=== PATIENT | female | born 1970 | race Caucasian/White ===

== ENCOUNTER 2017-10-09 04:02 | Emergency (ER) | payer BC ==
[2017-10-09 04:48] VITALS: BMI 27.9
[2017-10-09] MEDS ORDERED: FAMOTIDINE IV 20 MG/12 ML VIAL IVPUSH ONE (05:51)
[2017-10-09] MEDS ORDERED: SODIUM CHLORIDE 0.9% 1000 ML INFUS.BAG IV ONE (05:51)
[2017-10-09] MEDS ORDERED: FAMOTIDINE 20 MG/50 ML IVPB 20 MG/50 ML MG IVPB ONE (06:14)
--- NOTE | 2017-10-09 06:17 | PDOC ---
History of Present Illness - General Chief Complaint: Nausea Stated Complaint: INDIGESTION Time Seen by Provider: 10/09/17 05:16 - History of Present Illness Initial Comments: 10/09/17 06:27 CHIEF COMPLAINT: heartburn HISTORY OF PRESENT ILLNESS: 47-year-old female with no past medical history presents to ED with "heartburn". Patient reports she woke up and will night feeling a burning to her stomach and mid sternal region. Patient also states she feels anxious because she had a history of shoulder injury, but "I did not get surgery yet", she also feels some tingling to her fingers b/l. Patient reports last BM was today and she felt constipated. PAST MEDICAL HISTORY: Denies past medical history FAMILY HISTORY: Denies SOCIAL HISTORY: Denies tobacco, alcohol, illicit drug use. SURGICAL HISTORY: Denies ALLERGIES: No known drug allergies REVIEW OF SYSTEMS as per HPI PHYSICAL EXAM General Appearance: Well-appearing, appropriately dressed. No apparent distress , no intoxication. HEENT: EOMI, PERRLA, normal ENT inspection, normal voice, TMs normal, pharynx normal. No conjunctival pallor. No photophobia, scleral icterus. Neck: Supple. Trachea midline. No tenderness, rigidity, carotid bruit, stridor , lymphadenopathy, or thyromegaly. Respiratory/Chest: Lungs CTAB. No shortness of breath, chest tenderness, respiratory distress, accessory muscle use. No crackles, rales, rhonchi, stridor , wheezing, dullness Cardiovascular: RRR. S1, S2. No JVD, murmur, bradycardia, tachycardia. Vascular Pulses: Dorsalis-Pedis (R): 2+, Dorsalis-Pedis (L): 2+ Gastrointestinal/Abdominal: Normal bowel sounds. Abdomen soft, non-distended. No tenderness or rebound tenderness. No organomegaly, pulsatile mass, guarding , hernia, hepatomegaly, splenomegaly. Lymphatic: No adenopathy, tenderness. Musculoskeletal/Extremities: Normal inspection. FROM of all extremities, normal capillary refill. Pelvis Stable. No CVA tenderness. No tenderness to extremities, pedal edema, swelling, erythema or deformity. Integumentary: Appropriate color, dry, warm. No cyanosis, erythema, jaundice or rash Neurologic: teacher music II-XII intact. Fully oriented, alert. Appropriate mood/affect. Motor strength 5/5. No appreciable EOM palsy, facial droop or sensory deficit. Past History - Past Medical History Allergies/Adverse Reactions: Allergies Allergy/AdvReac Type Severity Reaction Status Date / Time No Known Allergies Allergy Verified 10/09/17 04:48 Home Medications: Ambulatory Orders Pantoprazole Sodium [Protonix] 40 mg PO DAILY #14 tablet. 10/09/17 - Suicide/Smoking/Psychosocial Hx Smoking History: Never smoked Have you smoked in the past 12 months: No Information on smoking cessation initiated: No Hx Alcohol Use: No Drug/Substance Use Hx: No *Physical Exam - Vital Signs Last Vital Signs Temp Pulse Resp BP Pulse Ox 98.1 F 79 18 126/70 97 10/09/17 04:43 10/09/17 04:43 10/09/17 04:43 10/09/17 04:43 10/09/17 04:43 ED Treatment Course - LABORATORY CBC & Chemistry Diagram: 10/09/17 06:25 10/09/17 06:25 Medical Decision Making - Medical Decision Making 10/09/17 06:28 47-year-old female with no past medical history presents to ED with "heartburn". -CBC, CMP -IVF, Pepcid, Protonix 10/09/17 06:29 Case discussed in detail with oncoming emergency provider including history, physical exam and ancillary studies. In brief, this patient is being seen in the ED for a chief complaint of: heartburn I have completed the initial assessment interview note and have ordered the following labs: cbc, cmp, lipase I have reviewed the following results: none Pending results: labs Plan for disposition as follows: discharge Oncoming NED [facility] has assumed care for the patient and will complete the evaluation and treatment. *DC/Admit/Observation/Transfer Diagnosis at time of Disposition: GERD (gastroesophageal reflux disease) Qualifiers: Esophagitis presence: with esophagitis Qualified Code(s): K21.0 - Gastro- esophageal reflux disease with esophagitis - Discharge Dispostion Disposition: HOME Condition at time of disposition: Stable Admit: No - Prescriptions Prescriptions: Pantoprazole Sodium [Protonix] 40 mg PO DAILY #14 tablet. - Referrals Referrals: Wayne Rodriguez [Primary Care Provider] - Solo Centeno MD [Staff Physician] - - Patient Instructions Printed Discharge Instructions: DI for Gastroesophageal Reflux Disease (GERD) Additional Instructions: Please take medications as prescribed and follow up with your primary care doctor and neurologist by the end of next week. If you develop any fever, chills, nausea, vomiting, diarrhea, chest pain, shortness of breath, or any new or worsening symptoms, please return to the ER. - Post Discharge Activity
[2017-10-09 06:43] LABS: BASO % 0.4 % (0-2.0); EOS % 3.5 % (0-4.5); MCH 29.7 pg (25.7-33.7); MCHC 33.6 g/dl (32.0-36.0); MEAN CELL VOLUME 88.4 fl (80-96); MEAN PLT VOLUME 9.1 fl (7.5-11.1); NEUT % 57.7 % (42.8-82.8); PLATELET COUNT 215 K/MM3 (134-434); RDW 14.4 % (11.6-15.6); WHITE BLOOD COUNT 4.2 K/mm3 (4.0-10.0)
[2017-10-09 07:25] LABS: ALBUMIN 3.4 g/dl (3.4-5.0); ALK PHOS 87 U/L (45-117); ANION GAP 5 (8-16); BILIRUBIN,TOTAL 0.4 mg/dL (0.2-1.0); CALCIUM 8.1 mg/dL (8.5-10.1); CO2 27 mmol/L (21-32); CREATININE 0.5 mg/dL (0.55-1.02); GLUCOSE,RANDOM 100 mg/dL (74-106); SGOT/AST 26 U/L (15-37); SGPT/ALT 35 U/L (12-78); TOT PROT 6.3 g/dl (6.4-8.2)
--- NOTE | 2017-10-09 09:09 | PDOC ---
*Physical Exam - Vital Signs Last Vital Signs Temp Pulse Resp BP Pulse Ox 98.1 F 79 18 126/70 97 10/09/17 04:43 10/09/17 04:43 10/09/17 04:43 10/09/17 04:43 10/09/17 04:43 - Physical Exam Comments: 10/09/17 10:02 General Appearance: Nourished. No Apparent Distress HEENT: No Pharyngeal Erythema, Tonsillar Exudate, Tonsillar Erythema Neck: No Cervical Lymphadenopathy Respiratory/Chest: Lungs Clear, Normal Breath Sounds. No Crackles, Rales, Rhonchi, Wheezing Cardiovascular: Regular Rhythm, Regular Rate. No Murmur, Gallops, Rubs Gastrointestinal/Abdominal: Normal Bowel Sounds, Soft. No Guarding, Rebound, Tenderness Musculoskeletal: No CVA Tenderness Extremity: Normal Capillary Refill Integumentary: Normal Color, Dry, Warm Neurologic: Fully Oriented, Alert, Normal Mood/Affect, Normal Response, ED Treatment Course - LABORATORY CBC & Chemistry Diagram: 10/09/17 06:25 10/09/17 06:25 - ADDITIONAL ORDERS Additional order review: Laboratory Results 10/09/17 10/09/17 06:25 06:25 Sodium 142 Potassium 3.6 Chloride 110 H Carbon Dioxide 27 Anion Gap 5 L BUN 16 Creatinine 0.5 L Creat Clearance w eGFR > 60 Random Glucose 100 Calcium 8.1 L Total Bilirubin 0.4 AST 26 ALT 35 Alkaline Phosphatase 87 Total Protein 6.3 L Albumin 3.4 Lipase Cancelled 143 10/09/17 06:25 RBC 4.16 MCV 88.4 MCHC 33.6 RDW 14.4 MPV 9.1 Neutrophils % 57.7 Lymphocytes % 30.9 Monocytes % 7.5 Eosinophils % 3.5 Basophils % 0.4 - Medications Given in the ED: ED Medications Discontinued Medications Generic Name Dose Route Start Last Admin Trade Name Freq PRN Reason Stop Dose Admin Famotidine 20 mg in 12 mls @ 144 mls/hr 10/09/17 05:51 10/09/17 06:05 Pepcid 20 Mg/12 Ml Push IVPUSH 10/09/17 05:55 144 mls/hr ONCE ONE Administration Sodium Chloride 1,000 ml 10/09/17 05:51 10/09/17 06:05 Normal Saline - IV 10/09/17 05:52 1,000 ml ONCE ONE Administration Progress Note - Progress Note Progress Note: Received sign out on the patient. Patient is a 47 year old female who presented with epigastric abdominal pain. Lab results have been unremarkable thus far and the patient has improved with pepcid. Pending lipase. Likely discharge home. Medical Decision Making - Medical Decision Making 10/09/17 10:03 Patient's lipase is normal. The patient reports significant improvement in her symptoms and is requesting discharge. We are comfortable with discharging the patient home at this time with PCP follow up. We discussed the results and the plan with the patient who voiced understanding and is agreeable with the plan. *DC/Admit/Observation/Transfer Diagnosis at time of Disposition: GERD (gastroesophageal reflux disease) Qualifiers: Esophagitis presence: with esophagitis Qualified Code(s): K21.0 - Gastro- esophageal reflux disease with esophagitis - Discharge Dispostion Disposition: HOME Condition at time of disposition: Stable - Prescriptions Prescriptions: Pantoprazole Sodium [Protonix] 40 mg PO DAILY #14 tablet.dr - Referrals Referrals: Solo Centeno MD [Staff Physician] - Wayne Rodriguez [Primary Care Provider] - - Patient Instructions Printed Discharge Instructions: DI for Gastroesophageal Reflux Disease (GERD) Additional Instructions: Please take medications as prescribed and follow up with your primary care doctor and neurologist by the end of next week. If you develop any fever, chills, nausea, vomiting, diarrhea, chest pain, shortness of breath, or any new or worsening symptoms, please return to the ER. - Post Discharge Activity
[2017-10-09 09:34] VITALS: BP 96/54; PULSE 77; TEMP 98
--- NOTE | 2017-10-15 13:23 | EKG ---
Test Reason : Blood Pressure : / mmHG Vent. Rate : 069 BPM Atrial Rate : 069 BPM P-R Int : 172 ms QRS Dur : 086 ms QT Int : 418 ms P-R-T Axes : 053 017 023 degrees QTc Int : 447 ms NORMAL SINUS RHYTHM WITH SINUS ARRHYTHMIA NORMAL ECG WHEN COMPARED WITH ECG OF 16-AUG-2004 11:53, NO SIGNIFICANT CHANGE WAS FOUND Confirmed by ALICE LARA MD ([id number]) on 10/15/2017 1:23:19 PM Referred By: Confirmed By:ALICE LARA MD
== END 2017-10-09 09:34 | disposition home or self-care (01) ==
LOC: JER 04:02
PROC: 3E033GC Introduction of Other Therapeutic Substance into Peripheral Vein, Percutaneous Approach (ICD-10-PCS; principal; 2017-10-09)
DX: K21.0 Gastro-esophageal reflux disease with esophagitis (principal)
CPT/HCPCS: 36415; 80053; 83690; 85025; 93005; 93010; 99282-25